=== PATIENT | female | born 1960 | race Caucasian/White ===

== ENCOUNTER 2017-04-26 13:46 | Emergency (ER) | payer OTHER ==
[~2017-04-26] VITALS: Ht 167.6 cm; Wt 118.0 kg
[2017-04-26] MEDS ORDERED: ULTRAM50 MG PO (15:24)
[2017-04-26 15:45] VITALS: BP 119/88
== END 2017-04-26 15:47 | disposition home or self-care (01) ==
LOC: EME 13:46
DX: S86.911A Strain of unspecified muscle(s) and tendon(s) at lower leg level, right leg, initial encounter (principal); X50.9XXA Other and unspecified overexertion or strenuous movements or postures, initial encounter; Y93.E6 Activity, residential relocation; F17.200 Nicotine dependence, unspecified, uncomplicated
CPT/HCPCS: 73552; 73590; 99281; 99284